=== PATIENT | male | born 1985 | race Caucasian/White ===

== ENCOUNTER 2018-06-18 23:16 | Emergency (ER) | payer MEDICAID ==
[~2018-06-18] VITALS: Ht 172.7 cm; Wt 86.0 kg
[2018-06-19] MEDS ORDERED: ALBUTEROL (0.5%) 2.5MG/0.5ML NEB HHN ONE (01:00)
[2018-06-19 01:42] LABS: HEMATOCRIT 41.4 % (42.0-52.0); HEMOGLOBIN 14.1 g/dL (14.0-18.0); MEAN CORPUSCULAR HEMOGLOBIN 30.9 pg (28.0-32.0); MEAN CORPUSCULAR VOLUME 90.7 fL (80.0-94.0); PLATELET 276 x1000/uL (130-400); RED BLOOD CELL COUNT 4.57 mill/uL (4.7-6.1); RED CELL DISTRIBUTION WIDTH 12.6 % (11.6-14.6)
[2018-06-19 01:45] LABS: CHLORIDE 105 mEq/L (98-107)
[2018-06-19 03:10] VITALS: BP 119/74
== END 2018-06-19 03:11 | disposition home or self-care (01) ==
LOC: ER 23:44
DX: R07.89 Other chest pain (principal); F17.200 Nicotine dependence, unspecified, uncomplicated; Z90.49 Acquired absence of other specified parts of digestive tract
CPT/HCPCS: 36415; 71045; 85027; 93005; 99284; J7611